=== PATIENT | female | born 1990 | race Two or more races ===

== ENCOUNTER 2023-04-30 10:18 | Outpatient (CLI) | payer OTHER | END 2023-04-30 10:20 | disposition home or self-care (01) | LOC: PRENATAL 10:18 | PROVIDERS: ATTEND Obstetrics & Gynecology Maternal & Fetal Medicine | DX: O35.9XX0 Maternal care for (suspected) fetal abnormality and damage, unspecified, not applicable or unspecified (principal); O35.3XX0 Maternal care for (suspected) damage to fetus from viral disease in mother, not applicable or unspecified; O34.219 Maternal care for unspecified type scar from previous cesarean delivery ==

== ENCOUNTER 2023-09-16 08:45 | Inpatient (IN) | payer OTHER ==
[~2023-09-16] VITALS: Ht 157.5 cm; Wt 3.2 kg
[2023-09-16 10:09] LABS: PH,URINE 7.5 (5.0-8.0); URINE APPEARANCE Cloudy; URINE BILIRRUBIN Negative (NEGATIVE); URINE BLOOD Negative; URINE COLOR Yellow; URINE GLUCOSE Negative (NEGATIVE); URINE LEUKOCYTE Negative; URINE NITRATE Negative; URINE PROTEIN Negative (NEGATIVE)
[2023-09-16 10:14] LABS: URINE BACTERIA 2261.6 uL (0.0-1933); URINE EPITHELIAL CELLS 116.3 uL (0.0-38.8); URINE RBC 3.3 uL (0.0-20.8); URINE WBC 22.2 uL (0.0-23.2)
[2023-09-16 10:22] LABS: HEMOGLOBIN 10.2 g/dL (12.0-15.00); MEAN CELL VOLUME 71.7 fL (80.00-100.00); MEAN CORPUSCULAR HEMOGLOBIN 23.5 pg (27.00-32.0); MEAN CORPUSCULAR HGB CONC 32.8 g/dl (32.0-36.0); PLATELET COUNT 245 K/uL (150-450); RED BLOOD COUNT 4.32 M/uL (4.00-6.00); RED CELL DISTRIBUTION WIDTH 15.7 % (11.5-14.5)
[2023-09-16] MEDS ORDERED: IRON325 MG PO (10:23)
[2023-09-16 10:48] LABS: URINE YEAST FEW /hpf
[2023-09-16 11:29] LABS: INR < 0.93; PARTIAL THROMBOPLASTIN TIME 24.5 SECONDS (22.0-34.0); PROTHROMBIN TIME 8.7 SECONDS (9.0-11.5)
[2023-09-18] MEDS ORDERED: CEFAZOLIN SODIUM 1,000 MG VIAL IV ONE (15:15)
[2023-09-18] MEDS ORDERED: ERYTHROMYCIN BASE 1 GM TUBE OP ONE (15:15)
[2023-09-18] MEDS ORDERED: OXYTOCIN 10 UNITS/ML VIAL IV ONE (15:15)
[2023-09-18] MEDS ORDERED: KETOROLAC TROMETHAMINE 60 MG VIAL IM STA (17:12)
[2023-09-18] MEDS ORDERED: ERYTHROMYCIN BASE 1 GM TUBE OP SCH (17:15)
[2023-09-18] MEDS ORDERED: MEPERIDINE HCL/PF 50 MG/ML VIAL IM PRN (17:15)
[2023-09-18] MEDS ORDERED: CHLORHEXIDINE GLUCONATE 120 ML BOTTLE TP SCH (17:15)
[2023-09-18] MEDS ORDERED: RINGERS SOLUTION,LACTATED 1,000 ML IV SCH (17:15)
[2023-09-18] MEDS ORDERED: PROMETHAZINE HCL 25 MG/ML AMPUL IM PRN (17:15)
[2023-09-18] MEDS ORDERED: OXYTOCIN 1,000 ML IV SCH (17:15)
[2023-09-18] MEDS ORDERED: KETOROLAC TROMETHAMINE 60 MG VIAL IM ONE (18:38)
[2023-09-18] MEDS ORDERED: OXYTOCIN 10 UNITS/ML VIAL ONE (18:57)
[2023-09-18 19:22] LABS: HEMATOCRIT 28.7 % (36.0-45.00); HEMOGLOBIN 9.5 g/dL (12.0-15.00); MEAN CELL VOLUME 71.2 fL (80.00-100.00); MEAN CORPUSCULAR HEMOGLOBIN 23.5 pg (27.00-32.0); PLATELET COUNT 218 K/uL (150-450); RED BLOOD COUNT 4.03 M/uL (4.00-6.00); RED CELL DISTRIBUTION WIDTH 15.9 % (11.5-14.5)
[2023-09-19] MEDS ORDERED: OxyCODONE HCL/APAP UD (PERCOCET) PO PRN (09:00)
[2023-09-19] MEDS ORDERED: PNV,CALCIUM 72/IRON/FOLIC ACID 1 TAB TABLET PO SCH (10:06)
[2023-09-19] MEDS ORDERED: FERROUS SULFATE 325 MG TABLET.EC PO SCH (10:06)
[2023-09-19] MEDS ORDERED: IBUprofen 600 MG TABLET PO PRN (10:30)
== END 2023-09-21 13:47 | disposition home or self-care (01) | DRG 785 ==
LOC: OB/GYN 09-18 08:45 → O/R 09-18 10:53 → OB/GYN 09-18 10:53
PROVIDERS: ADMIT Obstetrics & Gynecology; ATTEND Obstetrics & Gynecology
PROC: 0UB70ZZ Excision of Bilateral Fallopian Tubes, Open Approach (ICD-10-PCS; 2023-09-18)
PROC: 4A1HXCZ Monitoring of Products of Conception, Cardiac Rate, External Approach (ICD-10-PCS; 2023-09-18)
PROC: 10D00Z1 Extraction of Products of Conception, Low, Open Approach (ICD-10-PCS; principal; 2023-09-18 11:30)
DX: O34.211 Maternal care for low transverse scar from previous cesarean delivery (principal); Z30.2 Encounter for sterilization; Z20.822 Contact with and (suspected) exposure to COVID-19; Z3A.39 39 weeks gestation of pregnancy; Z37.0 Single live birth